=== PATIENT | female | born 1980 | race African-American/Black ===

== ENCOUNTER 2020-02-12 08:45 | Emergency (ER) | payer BC ==
[2020-02-12 09:00] VITALS: BP 134/74; PULSE 87; TEMP 98.9; BMI 38.7
[2020-02-12] MEDS ORDERED: PENICILLIN G BENZATHINE 1,200,000 UNIT/2 ML PFS IM ONE ×2 (09:59→10:04)
== END 2020-02-12 10:04 | disposition home or self-care (01) ==
LOC: FER 08:45
DX: J02.0 Streptococcal pharyngitis (principal)
CPT/HCPCS: 87070; 87880; 99284-25; C9803; U0003